=== PATIENT | female | born 1960 | race Caucasian/White ===

== ENCOUNTER 2023-07-06 17:30 | Emergency (ER) | payer OTHER ==
[2023-07-06 20:14] VITALS: BP 123/75; PULSE 73; RESP 16; TEMP 98.5; BMI 22.6
[2023-07-06] MEDS ORDERED: IBUPROFEN 400 MG TABLET (FP) PO ONE ×2 (20:17→20:20)
== END 2023-07-06 21:44 | disposition home or self-care (01) ==
LOC: FER 17:30
DX: S92.152A Displaced avulsion fracture (chip fracture) of left talus, initial encounter for closed fracture (principal); M25.572 Pain in left ankle and joints of left foot; X50.9XXA Other and unspecified overexertion or strenuous movements or postures, initial encounter
CPT/HCPCS: 73610-TC-LT-FY; 99283-25